=== PATIENT | female | born 1975 | race Caucasian/White ===

== ENCOUNTER 2017-03-01 15:36 | Observation (INO) ==
[2017-03-01] MEDS ORDERED: Ondansetron 4 MG/2 ML VIAL IVP ONE (16:01)
[2017-03-01] MEDS ORDERED: 0.9 % Sodium Chloride 1,000 ML IVC ONE (16:01)
--- NOTE | 2017-03-01 16:07 | Emergency Department Note ---
Disposition Clinical Impression: RUQ abdominal pain, Intractable abdominal pain, Liver mass Cholelithiasis Qualifiers: Cholelithiasis location: gallbladder Cholecystitis presence: without cholecystitis Biliary obstruction: with biliary obstruction Qualified Code(s): K80.21 - Calculus of gallbladder without cholecystitis with obstruction Disposition: Admitted As Inpatient Condition: Fair Time of Disposition: 19:19 Abdominal Pain HPI - General Chief Complaint: ED Abdominal Pain Stated Complaint: Abdominal pain Time Seen by Provider: 03/01/17 15:50 Source: patient Mode of arrival: ambulatory Limitations: no limitations Nursing Notes Reviewed: Yes Vital Signs Reviewed: Yes - History of Present Illness HPI Narrative: 41-year-old female presents with 6 days of epigastric pain, she states that her pain is currently 2 out of 10, is bad as an 8 out of 10, epigastric with some burning radiation across her lower rib cage, into her right upper quadrant, has some pain going into her bilateral back. she was seen at the urgent care yesterday where they told her she had gas and prescribed an [id number] Gas -X, for her pain. Patient describes the pain as crampy achy, has no history of gallbladder disease, has a history of abdominal surgeries, has had 4 previous kids, with intermittent irregular LMP is, thinks that she starting menopause. Otherwise no ST exposure, no dysuria hematuria, incidentally they found a renal stone but no ureterolithiasis on a plain film x-ray yesterday at the urgent care. Patient denies fever chills, does endorse some emesis nonbilious food contents over the last couple days. Associated with nausea denies any chest pain or shortness breath Pt Subjective Complaint: abdominal pain Location: RUQ, epigastric Pain Severity: moderate Pain Scale: 6 Quality: aching - Related Data Allergies Allergy/AdvReac Type Severity Reaction Status Date / Time ciprofloxacin [From Cipro] Allergy See Verified 03/01/17 15:42 Comments All systems ED: reviewed and negative except as stated. Constitutional: Denies: fever, chills, weakness Cardiovascular: Denies: chest pain, palpitations Respiratory: Denies: cough, dyspnea Gastrointestinal: Reports: as per HPI, abdominal pain, nausea, vomiting Genitourinary: Denies: urgency, dysuria Abdominal Pain PMH - Past Medical History Medical history: Reports: no medical history Female Surgical History: Reports: no surgical history - Social History Smoking status: Never smoker Alcohol use: Reports: none Drug use: Reports: none Physical Exam Constitutional: alert and oriented, in NAD, vital signs wnl appears moderately anxious HEENT: NCAT, sclera anicteric Neck: normal inspection, neck is supple, trachea midline Resp: normal chest inspection, CTA bilaterally, no resp distress CV: RRR, no m/g/r GI: + Rockwell sign, soft abdomen with mild epigastric and right upper quadrant tenderness to palpation. Bowel sounds 4 quadrants, negative tenderness at McBurney's point Back: normal inspection, no tenderness to palpation Neuro: A&O3, no gross motor or sensory deficits bilaterally MSK: normal inspection, bilateral UE and LE with normal ROM Skin: No rashes, skin warm, dry, intact - General Limitations: no limitations General appearance: alert, in no apparent distress Course Course Narrative: 41-year-old female with right upper quadrant pain, positive Rockwell's, afebrile no evidence of jaundice, concern for cholelithiasis, I did do a right upper quadrant ultrasound at bedside that showed gallbladder such sludge and cholelithiasis without gallbladder wall measuring 3.7mm, we will get a CT scan of abdomen and basic lab work with LFTs, IV fluids and Dilaudid. - Reevaluation(s) Reevaluation #1: After around of Toradol and Dilaudid, patient still with refractory right upper quadrant pain, plan to admit to medicine service, after talking with the general surgeon, we will start an IV antibiotics, admit to medicine service ultrasound in the morning, Dr. Crump accepting patient stable condition at the time of admission Time: 19:18 - Consultations Consultation #1: Spoke with Dr. Isabel about the 2 cm stone, equivocal findings, positive Rockwell's but otherwise no acute cholecystitis , ultrasoud deferred till AM per surgery, normal LFTs, he recommends admission to medicine started on IV Zosyn, and he will see in consultation the morning. Time: 19:17 Vital Signs Temperature 98.1 F 03/01/17 15:39 Pulse Rate 90 03/01/17 15:39 Respiratory Rate 20 03/01/17 15:39 Blood Pressure 151/89 03/01/17 15:39 O2 Sat by Pulse Oximetry 98 03/01/17 15:39 Temperature 98.8 F 03/01/17 20:17 Pulse Rate 78 03/01/17 21:43 Respiratory Rate 16 03/01/17 21:43 Blood Pressure 136/83 03/01/17 21:43 O2 Sat by Pulse Oximetry 96 03/01/17 21:43 Oxygen Delivery Oxygen Delivery Room Air Abdominal Pain - MDM Narrative Medical decision making narrative: 41-year-old female with right upper quadrant pain, cholelithiasis without cholecystitis on CT scan basic lab work unremarkable, given intractable pain consulted with general surgeon, admitted to medicine service in stable condition start an IV antibiotics ultrasound in the morning, nothing by mouth after midnight general surgery consult placed in the ED. - Differential Diagnosis Differential Diagnosis: Likely: acute appendicitis, constipation, colonic obstruction, diverticulitis, diverticulosis, gastroenteritis - Medical Records Medical records reviewed: Yes I reviewed the patient's medical records. - Lab Data Lab results reviewed: Yes I reviewed the patient's lab results. Result diagrams: 03/01/17 16:09 03/01/17 16:09 Lab Results 03/01/17 03/01/17 03/01/17 Range/Units 16:09 16:09 16:09 WBC 11.8 H (4.3-11.1) K/mcL RBC 4.31 (3.82-4.97) M/mcL Hgb 12.9 (11.5-15.4) g/dL Hct 37.9 (35.3-44.9) % MCV 87.9 (83.0-100.0) fL MCH 29.9 (28.0-33.3) pg MCHC 34.0 (31.6-35.5) g/dL RDW 12.6 (11.5-14.5) % Plt Count 362 (140-400) K/mcL MPV 8.4 L (9.4-12.4) fL Immature Gran % 0.4 (0-4) % Seg Neutrophils % 71.2 % Lymphocytes % 17.2 % Monocytes % 10.3 % Eosinophils % 0.6 % Basophils % 0.3 % Neutrophils # 8.4 (1.6-8.9) K/mcL Lymphocytes # 2.0 (0.6-4.6) K/mcL Monocytes # 1.2 (0.0-1.3) K/mcL Eosinophils # 0.1 (0.0-0.6) K/mcL Basophils # 0.0 (0.0-0.2) K/mcL Sodium 137 (136-145) mEq/L Potassium 3.7 (3.5-4.5) mEq/L Chloride 102 (98-109) mEq/L Carbon Dioxide 27 (19-29) mEq/L BUN 15 (7-20) mg/dL Creatinine 0.86 (0.57-1.11) mg/dL Est GFR ( Amer) > 60 (> 60) Est GFR (Non-Af Amer) > 60 (> 60) BUN/Creatinine Ratio 17 (6-26) Glucose 108 H (70-99) mg/dL Calculated Osmolality 285 (280-300) Calcium 9.7 (8.6-10.8) mg/dL Total Bilirubin 0.4 (0.2-1.2) mg/dL Direct Bilirubin 0.2 (0.0-0.5) mg/dL Indirect Bilirubin 0.2 (0.0-1.2) mg/dL AST 11 (5-34) Units/L ALT 21 (0-55) Units/L Alkaline Phosphatase 93 (38-126) Units/L Troponin I 0.01 (0-0.03) ng/mL Serum Total Protein 7.7 (6.0-8.3) g/dL Albumin 3.8 (3.5-5.0) g/dL Globulin 3.9 H (2.4-3.5) g/dL Albumin/Globulin Ratio 1.0 L (1.1-2.2) Amylase 37 (25-125) Units/L Lipase 38 (8-78) Units/L Urine Color (Yellow) Urine Clarity (Clear) Urine pH (5.0-8.0) pH Units Ur Specific [place] (1.010-1.025) Urine Protein (Neg-Trace) mg/dL Urine Glucose (UA) (Normal) mg/dL Urine Ketones (Negative) mg/dL Urine Blood (Negative) Urine Nitrite (Negative) Urine Bilirubin (Negative) Urine Urobilinogen (Normal) mg/dL Ur Leukocyte Esterase (Negative) Urine Microscopic RBC (0-3) per hpf Urine Microscopic WBC (0-3) per hpf Ur Squamous Epith Cells (None-Few) per lpf Urine Bacteria (None-Few) per hpf Hyaline Casts (None-Few) per lpf Ur Culture Indicated? (NO) Urine Test (Negative) 03/01/17 03/01/17 Range/Units 16:29 16:29 WBC (4.3-11.1) K/mcL RBC (3.82-4.97) M/mcL Hgb (11.5-15.4) g/dL Hct (35.3-44.9) % MCV (83.0-100.0) fL MCH (28.0-33.3) pg MCHC (31.6-35.5) g/dL RDW (11.5-14.5) % Plt Count (140-400) K/mcL MPV (9.4-12.4) fL Immature Gran % (0-4) % Seg Neutrophils % % Lymphocytes % % Monocytes % % Eosinophils % % Basophils % % Neutrophils # (1.6-8.9) K/mcL Lymphocytes # (0.6-4.6) K/mcL Monocytes # (0.0-1.3) K/mcL Eosinophils # (0.0-0.6) K/mcL Basophils # (0.0-0.2) K/mcL Sodium (136-145) mEq/L Potassium (3.5-4.5) mEq/L Chloride (98-109) mEq/L Carbon Dioxide (19-29) mEq/L BUN (7-20) mg/dL Creatinine (0.57-1.11) mg/dL Est GFR ( Amer) (> 60) Est GFR (Non-Af Amer) (> 60) BUN/Creatinine Ratio (6-26) Glucose (70-99) mg/dL Calculated Osmolality (280-300) Calcium (8.6-10.8) mg/dL Total Bilirubin (0.2-1.2) mg/dL Direct Bilirubin (0.0-0.5) mg/dL Indirect Bilirubin (0.0-1.2) mg/dL AST (5-34) Units/L ALT (0-55) Units/L Alkaline Phosphatase (38-126) Units/L Troponin I (0-0.03) ng/mL Serum Total Protein (6.0-8.3) g/dL Albumin (3.5-5.0) g/dL Globulin (2.4-3.5) g/dL Albumin/Globulin Ratio (1.1-2.2) Amylase (25-125) Units/L Lipase (8-78) Units/L Urine Color Yellow (Yellow) Urine Clarity Cloudy A (Clear) Urine pH 5.5 (5.0-8.0) pH Units Ur Specific [place] > 1.030 H (1.010-1.025) Urine Protein 30 H (Neg-Trace) mg/dL Urine Glucose (UA) Normal (Normal) mg/dL Urine Ketones Trace H (Negative) mg/dL Urine Blood Large H (Negative) Urine Nitrite Negative (Negative) Urine Bilirubin Negative (Negative) Urine Urobilinogen Normal (Normal) mg/dL Ur Leukocyte Esterase Negative (Negative) Urine Microscopic RBC 5-15 H (0-3) per hpf Urine Microscopic WBC 3-5 H (0-3) per hpf Ur Squamous Epith Cells Many H (None-Few) per lpf Urine Bacteria Few (None-Few) per hpf Hyaline Casts None Seen (None-Few) per lpf Ur Culture Indicated? NO (NO) Urine Test Negative (Negative) - Radiology Data Radiology results reviewed: Yes I reviewed the patient's radiology results. Chest X-Ray 03/01/17 16:02 IMPRESSION: No acute abnormality. D/ / Benji Markham MD / Benji Markham MD Interpreting Provider: Benji Markham MD Abdomen/Pelvis CT 03/01/17 17:08 IMPRESSION: 1. Cholelithiasis and probable gallbladder sludge, weight possible right upper quadrant fat stranding, raising the possibility of acute cholecystitis. 2. Heterogeneous hypodense lesion within the superior aspect of the left hepatic lobe. This is likely paper sales representative of focal fatty infiltration. However, given the cystic appearance in some of the regions, hepatic abscess would also be considered. Focal biliary ductal cystic dilation also possible. Neoplasm is not entirely excluded. In any event, MRI of that is recommended for better evaluation. Findings discussed with Dr. Hurtado at 3:20 pm on 03/01/2017 D/ / Gamal Monroe MD / Gamal Monroe MD Interpreting Provider: Gamal Monroe MD - EKG Data EKG attestation: Yes I reviewed and interpreted this EKG. EKG shows normal: sinus rhythm (76 bpm [place] 163 QRS 110 QTC 399 T wave inversion in lead 3, T-wave in lead [address] segment elevations or depressions, no previous EKG) T wave inversions noted in: III Interpretation: no acute changes - Core Measures AMI Core Measures Followed: No Measure Exclusions: not indicated Attestation Statement - Attestation Attestation: I, Smooth Perales, examined this patient and my medical decision-making was reviewed with the NUTRITION AND DIETETICS INSTRUCTOR/PA/Advanced Practice Nurse/Resident Physician. I agree with the documented findings, disposition and treatment plan as described except to the extent set forth below. 41-year-old female presents with concerns of right upper quadrant epigastric abdominal pain. Patient states her symptoms have been intermittent over the past 6 days. A sharp aching in her epigastrium and right upper quadrant, she states that this is sometimes worse after meals but is unable to correlate directly with by mouth intake. She was evaluated yesterday in an urgent care and was told that it was secondary to "excess gas" she states she had a bowel movement earlier today which was somewhat harder than her normal bowel movement however she does not feel constipated. Denies hematochezia, melena. Bedside ultrasound revealed a very large gallbladder but did not show significant amount of pericholecystic fluid or thickened gallbladder wall. CT of the abdomen showed stranding in the right upper quadrant and a large stone in the gallbladder neck. Laboratory testing did not reveal elevation of her LFTs. Patient required multiple doses of IV pain medication to control her pain. Resident spoke with the surgeon, Dr. Isabel, who recommended admission to the hospital for further care and evaluation and initial treatment with Zosyn. He will evaluate the patient in the a.m. for possible cholecystectomy. Patient is comfortable with this plan.
[2017-03-01 16:20] LABS: Basophils % 0.3 %; Eosinophils # 0.1 K/mcL (0.0-0.6); Eosinophils % 0.6 %; Hematocrit 37.9 % (35.3-44.9); Hemoglobin 12.9 g/dL (11.5-15.4); Immature Granulocytes % 0.4 % (0-4); Lymphocytes % 17.2 %; Mean Corpuscular Hemoglobin 29.9 pg (28.0-33.3); Mean Corpuscular Volume 87.9 fL (83.0-100.0); Mean Platelet Volume 8.4 fL (9.4-12.4); Monocytes # 1.2 K/mcL (0.0-1.3); Monocytes % 10.3 %; Neutrophils # 8.4 K/mcL (1.6-8.9); Platelet Count 362 K/mcL (140-400); Red Blood Count 4.31 M/mcL (3.82-4.97); Red Cell Distribution Width 12.6 % (11.5-14.5); Segmented Neutrophils % 71.2 %
[2017-03-01 16:34] LABS: Alanine Aminotransferase 21 Units/L (0-55); Albumin 3.8 g/dL (3.5-5.0); Alkaline Phosphatase 93 Units/L (38-126); Amylase 37 Units/L (25-125); Aspartate Amino Transferase 11 Units/L (5-34); BUN/Creatinine Ratio 17 (6-26); Bilirubin,Direct 0.2 mg/dL (0.0-0.5); Bilirubin,Indirect 0.2 mg/dL (0.0-1.2); Bilirubin,Total 0.4 mg/dL (0.2-1.2); Blood Urea Nitrogen 15 mg/dL (7-20); Calcium 9.7 mg/dL (8.6-10.8); Carbon Dioxide 27 mEq/L (19-29); Chloride 102 mEq/L (98-109); Globulin 3.9 g/dL (2.4-3.5); Glucose 108 mg/dL (70-99); Osmolality,Calculated 285 (280-300); Potassium 3.7 mEq/L (3.5-4.5); Sodium 137 mEq/L (136-145); Total Protein 7.7 g/dL (6.0-8.3); eGFR For African Americans > 60 (> 60); eGFR For Non-African Americans > 60 (> 60)
[2017-03-01] MEDS ORDERED: Ketorolac 15 MG/ML VIAL IVP ONE (16:41)
[2017-03-01 16:47] LABS: Bilirubin,Urine Negative (Negative); Blood,Urine Large (Negative); Clarity,Urine Cloudy (Clear); Color,Urine Yellow (Yellow); Glucose,Urine (UA) Normal (Normal); Ketones,Urine Trace mg/dL (Negative); Leukocyte Esterase,Urine Negative (Negative); Nitrite,Urine Negative (Negative); PH,Urine 5.5 pH Units (5.0-8.0); Protein,Urine 30 mg/dL (Neg-Trace); Specific Gravity,Urine > 1.030 (1.010-1.025); Urobilinogen,Urine Normal (Normal)
[2017-03-01 16:51] LABS: Bacteria,Urine Few per hpf (None-Few); Hyaline Casts,Urine None Seen per lpf (None-Few); Squamous Epithelial Cell,Urine Many per lpf (None-Few)
[2017-03-01 17:08] LABS: Lipase 38 Units/L (8-78)
[2017-03-01] MEDS ORDERED: *HR* HYDROmorphone (PF) 1 MG/ML SYRINGE IVP ONE ×3 (17:10→22:26)
[2017-03-01] MEDS ORDERED: Piperacillin/Tazobactam 3.375 GM in D5% in Water (Mini-Bag+) 100 ML IVPB ONE (19:20)
[2017-03-01] MEDS ORDERED: Naloxone 0.4 MG/ML INJ IVP PRN (19:54)
[2017-03-01] MEDS ORDERED: Acetaminophen 325 MG TABLET PO PRN (19:54)
--- NOTE | 2017-03-01 20:02 | Internal Med History&Physical ---
<Josias Peter - Last Filed: 03/01/17 20:49> Date of Encounter: 03/01/17 Time of Encounter: 19:58 Assessment and Plan (1) Acute cholecystitis Current visit: Yes Status: Acute 41-year-old female, admitted with right upper quadrant pain for roughly [address] of the abdomen demonstrates a grossly enlarged gallbladder with a 2 cm gallstone. - Gen. surgery is consulted Plan: - Patient receiving IV Zosyn in the emergency department, patient will be continued on Unasyn in the inpatient setting - Continue nothing by mouth status overnight with oral swabs and ice chips - Pain control with morphine and Dilaudid for severe pain - Normal saline at 100 mL per hour (2) Fecalith of appendix Current visit: Yes Status: Acute Review of the CT of the abdomen and pelvis demonstrates a fecalith at the junction of the appendix in the cecum. The patient is asymptomatic. (3) Liver mass Current visit: Yes Status: Acute A heterogeneous mainly hypodense lesion was observed in the abdomen and pelvis CT noted at the superior aspect of the medial segment of the left hepatic lobe measuring up to 7 x 5 cm on axial image. There is a cystic-appearing region noted within the lesion measuring up to 1.7 cm. Surrounding the lesion are margins of hyperdensity noted within the hepatic parenchyma. In the background there is diffuse fatty liver infiltration. - This may be a hemangioma, appears to be chronic. - Patient will need to follow-up in the outpatient setting. (4) Grand mal seizure disorder Current visit: Yes Status: Acute Patient has a history of absent seizures as a child and grand mal seizures as noted dull. Frequency roughly once a year with her last episode 2 months ago. She denies taking any antiseizure medications at home. Does not see a neurologist. - Says she has short-term memory loss with Ativan. - With history of seizures, patient about to undergo surgical procedure, will need to monitor for seizures. Plan: - Ativan when necessary for seizure activity. Internal Medicine - H&P: HPI Chief complaint: Right upper quadrant pain Admitted From: Emergency Dept Plans for Post Hospital Care: Home History of present illness: Ms. Humphries is a 41 year old female with a past medical history of seizure disorder presented to [facility] emergency department with right upper quadrant pain. She said that she started experiencing right upper quadrant pain that extended to her epigastric region and nerve pain in her mid upper back roughly 1 week ago. The pain waxed and waned in intensity but never fully resolved. She also had a feeling of a Knot and pulsating in her right upper quadrant. Over the past week she has had a lack of appetite, without last meal this morning eating oatmeal. She did not focus on any foods that may have exacerbated her symptoms but did notice that she was less hungry. She denies any right lower quadrant pain pain with walking or positional pain. She denies any other significant symptoms, denies any fevers, chills, sweating, blurry vision, lightheadedness, dizziness, chest pain, palpitations or any radiating pain to her arm or her face. She is unsure as if she had pain like this in the past but did notice the pain in the last week. She denies any previous surgeries, diabetes but says that her glucoses have been borderline prediabetic. With regards to her history of seizure disorder she says she last had a seizure 2 months ago and usually has a seizure once a year. She had absent seizures as a child but does have occasional seizures as mentioned above once a year under stressful situations. She says that the were grand mal seizures in the last time she had a grand mal seizure they gave her Ativan which gave her short-term memory loss. She denies any seizure activity recently. She denies taking any seizure medications or seeing a neurologist. She is not on any other medications. Past Med Surg Social Fam HX - Past Medical History Medical history: seizures - Past Surgical History Surgical History: no surgical history - Social History Smoking Status: Never smoker Alcohol use: none Drug use: none - Family History Mother Race: Hx Family Cancer: Yes (Lung cancer) Father Hx Family Endocrine Disorder: Yes (Diabetes) Internal Medicine - H&P: Meds Allergies ciprofloxacin [From Cipro] Allergy (Verified 03/01/17 15:42) See Comments All Systems PM: A 10-system review of systems was performed and is negative for pertinent findings except as documented above in the HPI. - Constitutional Constitutional: anorexia, no chills, no excessive sweating, no fatigue, no fever (s), no night sweats, no weakness - EENT Eyes: as per HPI, no blurry vision, no change in vision, no loss of vision Ears: as per HPI Nose, mouth and throat: no dry mouth, no epistaxis, no facial pain, no mouth pain, no sore throat - Cardiovascular Cardiovascular ROS IM: as per HPI, no chest pain, no dyspnea, no dyspnea on exertion, no syncope - Respiratory Respiratory: no cough, no dyspnea, no chest congestion - Gastrointestinal Gastrointestinal: abdominal pain, nausea, no change in bowel habits, no change in stool character, no constipation, no diarrhea, no heartburn, no hematemesis, no hematochezia, no loose stools - Genitourinary Genitourinary: as per HPI (Patient has 2-3 periods per year which she associates with menopause), no dysuria, no flank pain - Musculoskeletal Musculoskeletal ROS IM: back pain, no neck pain - Integumentary Integumentary IM: no erythema, no new lesions - Neurological Neurological ROS: no abnormal gait, no confusion, no dizziness, no headache(s), no loss of vision - Endocrine Endocrine IM: no excessive sweating, no fatigue, no flushing, no polydipsia, no polyphagia, no polyuria - Constitutional Vitals: Temp Pulse Resp BP Pulse Ox 98.1 F 81 18 142/58 98 03/01/17 15:39 03/01/17 19:30 03/01/17 19:47 03/01/17 19:47 03/01/17 19:30 Exam: General: Patient alert, awake, oriented 3, interactive, in no acute distress HEENT: Normocephalic, atraumatic, pupils equal reactive to light, nasal cavity patent and open septum median position, oral mucosa moist, uvula midline, neck supple trachea midline no palpable lymphadenopathy, no thyromegaly. Chest: Symmetric bilateral correlating with respiratory effort, effort nonlabored. Cardiac: Regular rate and rhythm, positive S1 and S2. no bruits appreciated bilateral carotids, Radial pulses 2+ bilateral, posterior tibial and dorsal pedal pulses 2+ bilateral. Respiratory: Clear to auscultation all lung durant Abdomen: Soft, positive Rockwell's sign, right upper quadrant tenderness, obese, positive bowel sounds, no erythema or edema or surgical scars Extremities: Symmetric bilateral, bilateral lower extremities without erythema or edema patient moving all 4 extremities spontaneously. Neurologic: No focal deficits appreciated on examination. Face symmetric, muscle strength symmetric bilateral upper and lower extremities. Internal Med - H&P Results - Labs CBC & Chem 7: 03/01/17 16:09 03/01/17 16:09 <Juan C Boyer - Last Filed: 03/02/17 06:01> Date of Encounter: 03/02/17 Internal Medicine - H&P: HPI History of present illness: Ms. Humphries is a 41 year old female All Systems PM: A 10-system review of systems was performed and is negative for pertinent findings except as documented above in the HPI. - Constitutional Vitals: Temp Pulse Resp BP Pulse Ox 98.2 F 89 20 142/85 100 03/02/17 03:51 03/02/17 03:51 03/02/17 03:51 03/02/17 03:51 03/02/17 03:51 Internal Med - H&P Results - Labs CBC & Chem 7: 03/02/17 05:21 03/02/17 05:21 Labs: Short CBC 03/02/17 Range/Units 05:21 WBC 11.3 H (4.3-11.1) K/mcL Hgb 13.4 (11.5-15.4) g/dL Hct 40.1 (35.3-44.9) % Plt Count 377 (140-400) K/mcL BMP 03/02/17 05:21 Sodium 137 Potassium 3.4 L Chloride 104 Carbon Dioxide 26 BUN 11 Creatinine 0.85 Glucose 127 H Calcium 9.4 Liver Function 03/02/17 Range/Units 05:21 Total Bilirubin 0.5 (0.2-1.2) mg/dL AST 50 H (5-34) Units/L ALT 68 H (0-55) Units/L Alkaline Phosphatase 106 (38-126) Units/L Albumin 3.6 (3.5-5.0) g/dL - Attending Attestation I examined this patient and my medical decision-making was reviewed with the Resident Physician. I agree with the documented findings, disposition and treatment plan as described
[2017-03-01] MEDS ORDERED: *HR* LORazepam 2 MG/ML VIAL IVP PRN (20:22)
[2017-03-01] MEDS: *HR* HYDROmorphone (PF) 1 MG/ML SYRINGE IVP PRN (20:38)
[2017-03-01] MEDS: 0.9 % Sodium Chloride 1,000 ML IVC SCH (20:38)
[2017-03-01] MEDS: *HR* Morphine 2 MG/ML SYRINGE IVP PRN (21:46)
[2017-03-01] MEDS: Ampicillin/Sulbactam 3,000 MG in 0.9 % Sodium Chloride Mini Bag 100 ML IVPB SCH (23:21)
[2017-03-02] MEDS ORDERED: *HR* HYDROcodone/Acet 7.5/325 mg TABLET PO PRN ×2 (00:11→11:43)
[2017-03-02] MEDS: *HR* HYDROmorphone (PF) 1 MG/ML SYRINGE IVP PRN ×4 (00:41→11:19)
[2017-03-02] MEDS: Ondansetron ODT 4 MG TAB.RAPDIS SL PRN ×2 (02:45→06:26)
[2017-03-02] MEDS: *HR* Morphine 2 MG/ML SYRINGE IVP PRN (02:53)
[2017-03-02] MEDS ORDERED: *HR* HYDROmorphone (PF) 1 MG/ML SYRINGE IVP PRN ×3 (04:03→16:01)
[2017-03-02] MEDS: Ampicillin/Sulbactam 3,000 MG in 0.9 % Sodium Chloride Mini Bag 100 ML IVPB SCH ×3 (05:22→23:29)
[2017-03-02 05:34] LABS: Hematocrit 40.1 % (35.3-44.9); Hemoglobin 13.4 g/dL (11.5-15.4); Mean Corpuscular HGB Conc 33.4 g/dL (31.6-35.5); Mean Corpuscular Volume 89.7 fL (83.0-100.0); Mean Platelet Volume 8.5 fL (9.4-12.4); Platelet Count 377 K/mcL (140-400); Red Blood Count 4.47 M/mcL (3.82-4.97); Red Cell Distribution Width 12.6 % (11.5-14.5)
[2017-03-02 05:46] LABS: Alanine Aminotransferase 68 Units/L (0-55); Albumin 3.6 g/dL (3.5-5.0); Albumin/Globulin Ratio 0.8 (1.1-2.2); Alkaline Phosphatase 106 Units/L (38-126); Aspartate Amino Transferase 50 Units/L (5-34); BUN/Creatinine Ratio 13 (6-26); Bilirubin,Total 0.5 mg/dL (0.2-1.2); Blood Urea Nitrogen 11 mg/dL (7-20); Calcium 9.4 mg/dL (8.6-10.8); Carbon Dioxide 26 mEq/L (19-29); Chloride 104 mEq/L (98-109); Globulin 4.4 g/dL (2.4-3.5); Glucose 127 mg/dL (70-99); Osmolality,Calculated 285 (280-300); Potassium 3.4 mEq/L (3.5-4.5); Sodium 137 mEq/L (136-145); eGFR For African Americans > 60 (> 60); eGFR For Non-African Americans > 60 (> 60)
[2017-03-02] MEDS: 0.9 % Sodium Chloride 1,000 ML IVC SCH (08:03)
--- NOTE | 2017-03-02 08:09 | General Surgery Consult Note ---
Date of Encounter: 03/02/17 Time of Encounter: 08:06 Assessment and Plan (1) Liver mass Current Visit: Yes Status: Acute Noted abnormal mass in the right dome of the liver. Will order a MRI of the abdomen with and without contrast better visualization of this mass effect. (2) Acute cholecystitis Current Visit: Yes Status: Acute Review the results and findings with the patient and family. She does have signs of acute cholecystitis and may have hydrops fluid within the gallbladder due to the stone at the cystic duct/neck. I think will be appropriate to proceed with a laparoscopic cholecystectomy. Risks and benefits have been discussed with the patient and family and they agree to the above plan. History of Present Illness Consult date: 03/02/17 Reason for consult: abdominal pain Requesting physician: Juan C Boyer History of present illness: The patient is a 41-year-old female with a past medical history significant for obesity states that over the past week she has had worsening continued right upper quadrant abdominal pain. She admits to nausea and vomiting and states the pain is severe in nature. She states that she has not had this type of pain before in the past and the pain is a constant ache that also radiates the left upper quadrant and across the abdomen in a bandlike fashion. She denies any diarrhea or constipation and because of her persistent and worsening abdominal pain she presented to the emergency room for further evaluation. Past Med Surg Social Fam HX - Past Medical History Medical history: no medical history Psychiatric history: no psych history - Past Surgical History Surgical History: no surgical history - Social History Smoking Status: Never smoker Smokeless Tobacco Status: No Alcohol use: none Drug use: none - Family History Mother Race: Hx Family Cancer: Yes (Lung cancer) Hx Family GI Disorders: Yes (appendix removed) Father Hx Family GI Disorders: Yes (gallbladder removed) Hx Family Endocrine Disorder: Yes (Diabetes) Medications and Allergies Allergies ciprofloxacin [From Cipro] Allergy (Verified 03/01/17 15:42) See Comments Review of Systems All systems PM: reviewed and no additional remarkable complaints except as stated All systems PM: A 10-system review of systems was performed and is negative for pertinent findings except as documented above in the HPI. General Surgery Exam Initial Vital Signs Temp Pulse Resp BP Pulse Ox 98.1 F 90 20 151/89 98 03/01/17 15:39 03/01/17 15:39 03/01/17 15:39 03/01/17 15:39 03/01/17 15:39 - General physical appearance severe distress - Eyes PERRL, normal ocular movement - Neck no masses, trachea midline, no lymphadectomy - Respiratory normal expansion, normal respiratory effort, clear to auscultation - Cardiovascular Cardiovascular exam: Present: RRR, no murmurs/rubs/gallops - Abdomen Abdomen general surgery: Present: bowel sounds present, soft (Obese), tender ( Pain to palpation in the RUQ. No masses.) - Integumentary Integumentary general surgery: Present: warm and dry - Neurologic Present: CN 2-12 grossly intact - Musculoskeletal Present: other (No clubbing, cyanosis, or edema.) - Psychiatric Psychiatric general surgery: Present: A&Ox3 Exam Initial Vital Signs Temp Pulse Resp BP Pulse Ox 98.1 F 90 20 151/89 98 03/01/17 15:39 03/01/17 15:39 03/01/17 15:39 03/01/17 15:39 03/01/17 15:39 Results - Labs 03/02/17 05:21 03/02/17 05:21 Abnormal lab results WBC 11.3 K/mcL (4.3-11.1) H 03/02/17 05:21 MPV 8.5 fL (9.4-12.4) L 03/02/17 05:21 Potassium 3.4 mEq/L (3.5-4.5) L 03/02/17 05:21 Glucose 127 mg/dL (70-99) H 03/02/17 05:21 POC Glucose 115 (58-89) H 03/02/17 05:25 AST 50 Units/L (5-34) H 03/02/17 05:21 ALT 68 Units/L (0-55) H 03/02/17 05:21 Globulin 4.4 g/dL (2.4-3.5) H 03/02/17 05:21 Albumin/Globulin Ratio 0.8 (1.1-2.2) L 03/02/17 05:21 Urine Clarity Cloudy (Clear) A 03/01/17 16:29 Ur Specific [place] > 1.030 (1.010-1.025) H 03/01/17 16:29 Urine Protein 30 mg/dL (Neg-Trace) H 03/01/17 16:29 Urine Ketones Trace mg/dL (Negative) H 03/01/17 16:29 Urine Blood Large (Negative) H 03/01/17 16:29 Urine Microscopic RBC 5-15 per hpf (0-3) H 03/01/17 16:29 Urine Microscopic WBC 3-5 per hpf (0-3) H 03/01/17 16:29 Ur Squamous Epith Cells Many per lpf (None-Few) H 03/01/17 16:29 Diabetes panel 03/02/17 Range/Units 05:21 Sodium 137 (136-145) mEq/L Potassium 3.4 L (3.5-4.5) mEq/L Chloride 104 (98-109) mEq/L Carbon Dioxide 26 (19-29) mEq/L BUN 11 (7-20) mg/dL Creatinine 0.85 (0.57-1.11) mg/dL Glucose 127 H (70-99) mg/dL Calcium 9.4 (8.6-10.8) mg/dL AST 50 H (5-34) Units/L ALT 68 H (0-55) Units/L Alkaline Phosphatase 106 (38-126) Units/L Albumin 3.6 (3.5-5.0) g/dL Calcium panel 03/02/17 Range/Units 05:21 Calcium 9.4 (8.6-10.8) mg/dL Albumin 3.6 (3.5-5.0) g/dL Pituitary panel 03/02/17 Range/Units 05:21 Sodium 137 (136-145) mEq/L Potassium 3.4 L (3.5-4.5) mEq/L Chloride 104 (98-109) mEq/L Carbon Dioxide 26 (19-29) mEq/L BUN 11 (7-20) mg/dL Creatinine 0.85 (0.57-1.11) mg/dL Glucose 127 H (70-99) mg/dL Calcium 9.4 (8.6-10.8) mg/dL Adrenal panel 03/02/17 Range/Units 05:21 Sodium 137 (136-145) mEq/L Potassium 3.4 L (3.5-4.5) mEq/L Chloride 104 (98-109) mEq/L Carbon Dioxide 26 (19-29) mEq/L BUN 11 (7-20) mg/dL Creatinine 0.85 (0.57-1.11) mg/dL Glucose 127 H (70-99) mg/dL Calcium 9.4 (8.6-10.8) mg/dL Total Bilirubin 0.5 (0.2-1.2) mg/dL AST 50 H (5-34) Units/L ALT 68 H (0-55) Units/L Alkaline Phosphatase 106 (38-126) Units/L Albumin 3.6 (3.5-5.0) g/dL All other labs normal. - Imaging CT scan - abdomen: report reviewed, image reviewed (Images and report reviewed by me. Evidence of a distended gallbladder with stone in the cystic duct/neck. Noted possible mass effect versus hemangioma in the dome of the right liver.) Consult Discharge Plan - Plan Referrals: NO,PCP [Primary Care Provider] -
--- NOTE | 2017-03-02 08:56 | Internal Med Progress Note ---
Date of Encounter: 03/02/17 Time of Encounter: 08:54 - Assessment and plan (1) Acute cholecystitis Current Visit: Yes Status: Acute Assessment and plan: Acute cholecystitis Continue Unasyn day 2, add Flagyl Keep nothing by mouth, surgery consulted to consider possible cholecystectomy Continue IV fluids, Dilaudid as needed (2) Hypokalemia Current Visit: Yes Status: Acute Assessment and plan: Potassium to the IV fluids and replete as needed (3) Cholelithiasis Current Visit: Yes Status: Acute Qualifiers: Cholelithiasis location: gallbladder Cholecystitis presence: without cholecystitis Biliary obstruction: with biliary obstruction Qualified Code(s ): K80.21 - Calculus of gallbladder without cholecystitis with obstruction (4) Liver mass Current Visit: Yes Status: Acute Assessment and plan: MRI ordered by Dr. Isabel (5) Grand mal seizure disorder Current Visit: Yes Status: Acute Assessment and plan: The patient does not take any medication (6) Fecalith of appendix Current Visit: Yes Status: Acute - Subjective Interval history: Complains of abdominal pain the right upper quadrant 8 out of 10 in intensity that comes and goes, stabbing-like. Complaining of chills, no chest pain or shortness of breath, no dysuria. No diarrhea - Constitutional Vitals: Temp Pulse Resp BP Pulse Ox 99.7 F H 92 15 138/83 97 03/02/17 06:57 03/02/17 06:57 03/02/17 06:57 03/02/17 06:57 03/02/17 07:56 General appearance: Present: A&O X 3 - Head Head exam: Present: atraumatic, normocephalic - Eye Eye exam: Present: PERRL, conjuntiva pink, sclera anicteric Pupils: Present: PERRL - Neck Neck exam general surgery: Present: supple, trachea midline. Absent: lymphadenopathy - Respiratory Respiratory exam: Present: CTAB. Absent: accessory muscle use, rales, rhonchi, wheezes - Cardiovascular Cardiovascular exam: Present: RRR, +S1, +S2. Absent: diastolic murmur, gallop, rubs, systolic murmur - GI/Abdominal GI/Abdominal exam: Present: distended, normal bowel sounds, soft, tenderness ( Right upper quadrant tenderness, Rockwell's sign is positive), no peritoneal signs - Extremities Exam Extremities exam: Present: warm, radial pulses palpable and symetrical. Absent : calf tenderness, cyanotic, pedal edema - Neurological Exam Neurological exam: Present: CN II-XII intact, oriented X3, no focal deficits. Absent: pronater drift, facial droop, speech deficit - Skin Skin exam: Present: dry, intact Internal Medicine: Result - Labs CBC & Chem 7: 03/02/17 05:21 03/02/17 05:21 Labs: Short CBC 03/02/17 Range/Units 05:21 WBC 11.3 H (4.3-11.1) K/mcL Hgb 13.4 (11.5-15.4) g/dL Hct 40.1 (35.3-44.9) % Plt Count 377 (140-400) K/mcL BMP 03/02/17 05:21 Sodium 137 Potassium 3.4 L Chloride 104 Carbon Dioxide 26 BUN 11 Creatinine 0.85 Glucose 127 H Calcium 9.4 Liver Function 03/02/17 Range/Units 05:21 Total Bilirubin 0.5 (0.2-1.2) mg/dL AST 50 H (5-34) Units/L ALT 68 H (0-55) Units/L Alkaline Phosphatase 106 (38-126) Units/L Albumin 3.6 (3.5-5.0) g/dL Consult Discharge Plan - Plan Referrals: NO,PCP [Primary Care Provider] -
[2017-03-02] MEDS ORDERED: Pantoprazole 40 MG VIAL IVP SCH (09:00)
--- NOTE | 2017-03-02 13:36 | Electrocardiograph Report ---
[place] [id number] Test Date: 2017-03-01 Pat Name: Grace Humphries Department: 102 Room: 3A Gender: F Pm Head Cook: [facility] : 1975 Requested By: Hugo Welch Order Number: [id number] Reading MD: Colby uFng MD Measurements Intervals [place] Rate: 76 P: 16 KS: 163 QRS: 25 QRSD: 110 T: 3 QT: 369 QTc: 399 Interpretive Statements SINUS RHYTHM Electronically Signed On 03-02-2017 13:34:20 EDT by Colby Fung MD
[2017-03-02] MEDS ORDERED: Lidocaine -MPF 4% 5 ML AMPUL ONE (14:45)
[2017-03-02] MEDS ORDERED: Ondansetron 4 MG/2 ML VIAL ONE (14:45)
[2017-03-02] MEDS ORDERED: *HR* Propofol 200 MG/20 ML VIAL IVP ONE (14:45)
[2017-03-02] MEDS ORDERED: *HR* Midazolam HCl 2 MG/2 ML VIAL ONE (14:45)
[2017-03-02] MEDS ORDERED: Lidocaine -MPF 2% 2 ML VIAL ONE (14:45)
[2017-03-02] MEDS ORDERED: *HR* Succinylcholine 200 MG/10 ML VIAL IVP ONE (14:45)
[2017-03-02] MEDS ORDERED: Dexamethasone 4 MG/ML VIAL ONE (14:45)
[2017-03-02] MEDS ORDERED: *HR* FentaNYL (PF) 100 MCG/2 ML VIAL ONE ×2 (14:45→16:47)
--- NOTE | 2017-03-02 15:08 | Anesthesia Evaluation PreOp ---
Date of Encounter: 03/02/17 Time of Encounter: 15:30 - Past History Planned Operation: lap cholecystectomy Cardiac History: Denies any Significant Hx Pulmonary History: Denies Any Significant HX VP PURCHASING History: Seizures (takes no medications; one seizure ~ every 3 years) Other Medical History: Other (BMI 39) Anesthesia History: No Prior Anesthetic Complications (never underwent anesthesia previously; no fhx of problems with anesthesia) Alcohol Use: none Drug use: none Medications and Allergies No Known Home Drugs 03/02/17 [History] Allergies ciprofloxacin [From Cipro] Allergy (Verified 03/01/17 15:42) See Comments - Meds/Allergy Pre-op Review Medications Reviewed: Yes Allergies Reviewed: Yes Beta Blockers on Current Med List: No Anesthesia Results - Labs 03/02/17 05:21 03/02/17 05:21 - Imaging EKG: report reviewed, image reviewed (SR) Anesthesia Exam Last Vital Signs Temp 99.3 F 03/02/17 10:47 Pulse 83 03/02/17 10:47 Resp 15 03/02/17 10:47 BP 145/85 03/02/17 10:47 Pulse Ox 96 03/02/17 10:47 - HEENT Pupil (Motor): Pupils equal, EOMI Mallampati: I Teeth: Normal Oral Opening: Greater than 3 - VP PURCHASING LOC: Oriented VP PURCHASING Motor: Normal RUE, Normal LUE, Normal RLE, Normal LLE, Normal Face - Cardiac Rhythm: Regular Murmur: None - Pulmonary Breath Sounds: bilateral Clear Respiratory Effort: Symmetrical Anesthesia Assess/Plan ASA Score: 2 Modified [place] Scale for Level of Consciousness: Cooperative, oriented, and tranquil Anesthetic Plan: General Monitoring Plan: Standard Monitors Recovery Plan: PACU
[2017-03-02] MEDS ORDERED: MetroNIDAZOLE 500 MG/100 ML 500 MG/100 ML BAG IVPB SCH (16:00)
[2017-03-02] MEDS ORDERED: Ondansetron 4 MG/2 ML VIAL IVP ONE (16:01)
[2017-03-02] MEDS ORDERED: *HR* Phenylephrine 10 MG/ML VIAL ONE (16:02)
[2017-03-02] MEDS ORDERED: Neostigmine Methylsulfate 3 MG/3 ML SYRINGE ONE (16:06)
[2017-03-02] MEDS ORDERED: *HR* HYDROmorphone 2 MG/ML SYRINGE ONE (16:47)
--- NOTE | 2017-03-02 16:50 | Operative Note ---
Date of procedure: 03/02/17 Pre-op diagnosis: Acute cholecystitis Post-op diagnosis: same Procedure: Laparscopic cholecystectomy Anesthesia: MESFIN Surgeon: Miguel Isabel Steeple Jack: Davida Villa Estimated blood loss (cc): 150 Specimen: gallbladder and contents Condition: stable Disposition: PACU Procedure in Detail: Date of surgery: 03/02/17 After properly identifying the patient, the patient was brought to the operating room and placed in the supine position. After proper IV sedation was achieved followed by general endotracheal intubation, the patient's abdomen was prepped and draped in a normal sterile fashion. A timeout was performed noting the patient's name and type of procedure to be performed. A supraumbilical incision with an 11 blade scalpel was made down to the level of the rectus fascia. The rectus fascia was then incised and the abdomen was entered. A 12 mm port was placed through the incision and the abdomen was insufflated with carbon dioxide. A laparoscopic camera was placed through the port which showed no injury to the intra-abdominal organs upon entry. A subxiphoid 12 mm port and a right subcostal margin 5 mm port were then placed under direct camera visualization. The patient was placed in a reverse Trendelenburg position and the gallbladder was examined and noted to be enlarged and distended. Due to the largest gallbladder the decision was made to needle decompress the gallbladder with a laparoscopic needle drainage device which yielded 200 mL of lightly greenish/ brownish exudate/bile. This allowed for grasping of the gallbladder retraction superiorly. The gallbladder was noted to be significantly acutely inflamed consistent with acute cholecystitis. The peritoneal covering overlying the cystic duct and cystic artery was bluntly dissected free with a [place] dissector. The cystic duct was isolated and there was a large gallstone noted at the neck of the gallbladder. The peritoneal covering overlying the cystic duct was dissected free with blunt dissection and the duct was clipped laparoscopic clips and incised with laparoscopic scissors. The cystic artery was likewise clipped with laparoscopic clips and incised with laparoscopic scissors. The gallbladder was carefully dissected off the gallbladder fossa with Bovie cauterization while Bovie cauterization was used to maintain hemostasis. Once the gallbladder was dissected free was removed from the abdomen via an Endobag. There is some noted bleeding on the dome of the right liver and the laceration was identified which was cauterized. The right upper quadrant was then copiously irrigated with normal saline solution and reinspection demonstrated maintenance of hemostasis along the gallbladder fossa and at the level of the laceration. All ports were then removed from the abdomen after the abdomen was desufflated. The rectus fascia for the supraumbilical incision was reapproximated with a [id number] 0 Vicryl suture. The subcutaneous tissue was reapproximated with interrupted 3-0 Vicryl sutures. The epidermal and dermal layers for the remaining incisions were reapproximated with 4-0 Monocryl sutures. Needle, sponge, and instrument counts were correct 2 and the incisions were covered with Steri-Strips and Band-Aids. The patient was aroused from IV sedation, extubated in the operating room without complication, and transported to the recovery room in stable condition
--- NOTE | 2017-03-02 17:35 | Anesthesia Evaluation Post Op ---
Date of Encounter: 03/02/17 Time of Encounter: 17:35 - Vital Signs Vital Signs: Last Vital Signs Temp 97.3 F L 03/02/17 17:01 Pulse 76 03/02/17 17:21 Resp 15 03/02/17 17:21 BP 118/80 03/02/17 17:21 Pulse Ox 95 03/02/17 17:21 - Lungs Lungs: Clear Ascult./Percussion - Airway Airway: Non-obstructed - Cardiovascular Regular Rate - Mental Status Mental Status: Alert & Oriented, Answers Appropriately - Pain Pain Scale: 3 - Nausea Vomiting Nausea Vomiting: Not Present - Hydration Hydration: Ice chips - Discharge PostOp Status: Transfer Patient to floor
[2017-03-02] MEDS ORDERED: Naloxone 0.4 MG/ML INJ IVP PRN (18:03)
[2017-03-02] MEDS ORDERED: Ondansetron ODT 4 MG TAB.RAPDIS SL PRN (18:03)
[2017-03-02] MEDS ORDERED: Acetaminophen 325 MG TABLET PO PRN (18:03)
[2017-03-02] MEDS ORDERED: *HR* LORazepam 2 MG/ML VIAL IVP PRN (18:03)
[2017-03-02] MEDS: *HR* HYDROcodone/Acet 7.5/325 mg TABLET PO PRN (20:25)
[2017-03-02] MEDS: MetroNIDAZOLE 500 MG/100 ML 500 MG/100 ML BAG IVPB SCH (23:30)
[2017-03-03] MEDS: *HR* HYDROmorphone (PF) 1 MG/ML SYRINGE IVP PRN ×2 (04:33→07:30)
[2017-03-03 04:44] LABS: Hemoglobin 12.4 g/dL (11.5-15.4); Mean Corpuscular HGB Conc 33.5 g/dL (31.6-35.5); Mean Corpuscular Hemoglobin 30.8 pg (28.0-33.3); Mean Corpuscular Volume 91.8 fL (83.0-100.0); Mean Platelet Volume 8.8 fL (9.4-12.4); Platelet Count 354 K/mcL (140-400); Red Blood Count 4.03 M/mcL (3.82-4.97); Red Cell Distribution Width 12.9 % (11.5-14.5)
[2017-03-03] MEDS: Ampicillin/Sulbactam 3,000 MG in 0.9 % Sodium Chloride Mini Bag 100 ML IVPB SCH ×2 (05:03→12:04)
[2017-03-03 05:06] LABS: Alanine Aminotransferase 100 Units/L (0-55); Albumin 3.2 g/dL (3.5-5.0); Albumin/Globulin Ratio 0.7 (1.1-2.2); Alkaline Phosphatase 91 Units/L (38-126); Aspartate Amino Transferase 76 Units/L (5-34); BUN/Creatinine Ratio 11 (6-26); Bilirubin,Total 0.5 mg/dL (0.2-1.2); Blood Urea Nitrogen 9 mg/dL (7-20); Calcium 9.1 mg/dL (8.6-10.8); Carbon Dioxide 25 mEq/L (19-29); Chloride 105 mEq/L (98-109); Globulin 4.6 g/dL (2.4-3.5); Glucose 110 mg/dL (70-99); Osmolality,Calculated 287 (280-300); Potassium 3.7 mEq/L (3.5-4.5); Sodium 139 mEq/L (136-145); Total Protein 7.8 g/dL (6.0-8.3); eGFR For African Americans > 60 (> 60); eGFR For Non-African Americans > 60 (> 60)
[2017-03-03] MEDS ORDERED: Pantoprazole 40 MG VIAL IVP SCH (09:00)
[2017-03-03] MEDS: MetroNIDAZOLE 500 MG/100 ML 500 MG/100 ML BAG IVPB SCH (09:10)
--- NOTE | 2017-03-03 09:10 | General Surgery Progress Note ---
Date of Encounter: 03/03/17 Time of Encounter: 09:08 - Assessment and Plan (1) Liver mass Current Visit: Yes Status: Acute I explained to the patient that the review of the MRI demonstrated that the liver lesions or masses were consistent with hemangiomas. No further intervention is necessary. (2) Acute cholecystitis Current Visit: Yes Status: Acute S/p Lap CCY. From a surgical perspective I think it would be appropriate to further advance her diet and some IV fluids. Okay to be discharged home and we will make sure she has a follow-up to see us in the office in 2 weeks. Will sign off. Thank you. Subjective Patient reports: other (Patient states that her pain has significantly improved. Noted left sided tenderness. No nausea.) Objective Vital Signs - Last 8 Hours Temp Pulse Resp BP Pulse Ox 03/03/17 07:24 99.0 F 89 18 128/84 96 Intake and Output 03/02/17 03/03/17 03/03/17 23:59 07:59 15:59 Intake Total 200 / 200 1300 / 1300 Output Total 150 / 150 0 / 0 Balance 50 / 50 1300 / 1300 Intake: IV Fluids 200 / 200 1300 / 1300 KCl 10 MEQ In 0.9 % 200 / 200 1000 / 1000 Sodium Chloride 1,000 ML @ 125 mls/hr IVC .Q8H3M AMADA Rx#:[id number] Unasyn 3,000 MG In 0.9 % 200 / 200 Sodium Chloride (Mini-Bag +) 100 ML @ 200 mls/hr IVPB Q6HR AMADA Rx#: [id number] Flagyl Premix 500 MG/100 100 / 100 ML 500 mg In 100 ml @ 100 mls/hr IVPB Q8HR AMADA Rx# :[id number] Oral 0 / 0 0 / 0 Output: Urine 0 / 0 0 / 0 Estimated Blood Loss 150 / 150 Other: Meal NPO Blood Glucose* 100 - General physical appearance well developed, well nourished, no distress - Abdomen Abdomen: Present: soft, tender (Noted incisional tenderness.) - Labs 03/03/17 04:24 03/03/17 04:24 Diabetes panel 03/03/17 Range/Units 04:24 Sodium 139 (136-145) mEq/L Potassium 3.7 (3.5-4.5) mEq/L Chloride 105 (98-109) mEq/L Carbon Dioxide 25 (19-29) mEq/L BUN 9 (7-20) mg/dL Creatinine 0.80 (0.57-1.11) mg/dL Glucose 110 H (70-99) mg/dL Calcium 9.1 (8.6-10.8) mg/dL AST 76 H (5-34) Units/L ALT 100 H (0-55) Units/L Alkaline Phosphatase 91 (38-126) Units/L Albumin 3.2 L (3.5-5.0) g/dL Calcium panel 03/03/17 Range/Units 04:24 Calcium 9.1 (8.6-10.8) mg/dL Albumin 3.2 L (3.5-5.0) g/dL Pituitary panel 03/03/17 Range/Units 04:24 Sodium 139 (136-145) mEq/L Potassium 3.7 (3.5-4.5) mEq/L Chloride 105 (98-109) mEq/L Carbon Dioxide 25 (19-29) mEq/L BUN 9 (7-20) mg/dL Creatinine 0.80 (0.57-1.11) mg/dL Glucose 110 H (70-99) mg/dL Calcium 9.1 (8.6-10.8) mg/dL Adrenal panel 03/03/17 Range/Units 04:24 Sodium 139 (136-145) mEq/L Potassium 3.7 (3.5-4.5) mEq/L Chloride 105 (98-109) mEq/L Carbon Dioxide 25 (19-29) mEq/L BUN 9 (7-20) mg/dL Creatinine 0.80 (0.57-1.11) mg/dL Glucose 110 H (70-99) mg/dL Calcium 9.1 (8.6-10.8) mg/dL Total Bilirubin 0.5 (0.2-1.2) mg/dL AST 76 H (5-34) Units/L ALT 100 H (0-55) Units/L Alkaline Phosphatase 91 (38-126) Units/L Albumin 3.2 L (3.5-5.0) g/dL - VTE Documentation of Mechanical Device: Intermittent pneumatic compression device Consult Discharge Plan - Plan Referrals: NO,PCP [Primary Care Provider] -
--- NOTE | 2017-03-03 10:09 | Discharge Summary ---
Date of Encounter: 03/03/17 Time of Encounter: 10:06 - Discharge Diagnosis (1) Acute cholecystitis Priority: Primary Status: Acute (2) Hypokalemia Priority: Secondary Status: Acute (3) Cholelithiasis Priority: Primary Status: Acute Qualifiers: Cholelithiasis location: gallbladder Cholecystitis presence: without cholecystitis Biliary obstruction: with biliary obstruction Qualified Code(s ): K80.21 - Calculus of gallbladder without cholecystitis with obstruction (4) Liver mass Priority: Secondary Status: Acute Comments: Liver hemangioma (5) Grand mal seizure disorder Priority: Secondary Status: Acute (6) Fecalith of appendix Priority: Secondary Status: Acute - Discharge Medications Prescriptions: HYDROcodone/Acet 7.5/325 mg [[place] 7.5-325 mg] 1 tab PO Q6HR PRN #25 tablet PRN Reason: Moderate Pain Amoxicillin/Clavulanate [Augmentin] 875 mg PO BIDWM #10 tablet metroNIDAZOLE [Flagyl] 500 mg PO TID #15 tablet Home Medications: Amoxicillin/Clavulanate [Augmentin] 875 mg PO BIDWM #10 tablet 03/03/17 [Rx] HYDROcodone/Acet 7.5/325 mg [[place] 7.5-325 mg] 1 tab PO Q6HR PRN #25 tablet 02/12 [Rx] metroNIDAZOLE [Flagyl] 500 mg PO TID #15 tablet 03/03/17 [Rx] Allergies/Adverse Reactions: Allergies ciprofloxacin [From Cipro] Allergy (Verified 03/01/17 15:42) See Comments Procedures/tests Complete & Pending: Procedures Performed prior 72 hours Category Date Time Status MR abdomen wo/w con [MR] Stat MRI 03/02/17 08:05 Completed Date of admission: 03/01/17 19:31 Primary care physician: PCP NO - Patient Status Disposition: Home, Self-Care Condition: Fair Overall status at discharge: patient is back to baseline - Discharge Instructions Follow Up With: NO,PCP [Primary Care Provider] - Additional Instructions: Follow-up with a primary care physician within the next 7 days, complete 5 more days of Augmentin and Flagyl orally. Do not take alcohol beverages with Flagyl. Follow-up with surgery within the next 2 weeks. Follow-up with neurologist. - Diet and Activity Activity: increase activity as tolerated Diet: low fat, low cholesterol Hospital course: Ms. Humphries is a 41 year old female with a past medical history of seizure disorder presented to [facility] emergency department with right upper quadrant pain. She said that she started experiencing right upper quadrant pain that extended to her epigastric region and nerve pain in her mid upper back roughly 1 week ago. The pain waxed and waned in intensity but never fully resolved. She also had a feeling of a Knot and pulsating in her right upper quadrant. Over the past week she has had a lack of appetite, without last meal this morning eating oatmeal. She did not focus on any foods that may have exacerbated her symptoms but did notice that she was less hungry. She denies any right lower quadrant pain pain with walking or positional pain. She denied any previous surgeries, diabetes but says that her glucoses have been borderline prediabetic. With regards to her history of seizure disorder she says she last had a seizure 2 months ago and usually has a seizure once a year. She had absent seizures as a child but does have occasional seizures as mentioned above once a year under stressful situations. She says that the were grand mal seizures in the last time she had a grand mal seizure they gave her Ativan which gave her short-term memory loss. She denies any seizure activity recently. She denies taking any seizure medications or seeing a neurologist. She was not on any other medications. CT scan of the abdomen demonstrated cholelithiasis and acute cholecystitis, there was a hypodense lesion noticed for which an MRI was recommended which showed a 5.5 cm x 5.4 cm left lobe liver mass compatible with a possible hemangioma with other 2 smaller ones. No surgical intervention for these benign neoplastic formations were recommended by surgery. The patient underwent a cholecystectomy on 03/02/2017 that was laparoscopic without any complications. The patient was given the option to stay another day but prefers to be discharged at this time. Cleared by Surgery - Time Spent with Patient Total time spent providing and/or coordinating discharge services: Greater than 30 minutes (40 min) - Constitutional Vitals: Temp Pulse Resp BP Pulse Ox 99.0 F 89 18 128/84 96 03/03/17 07:24 03/03/17 07:24 03/03/17 07:24 03/03/17 07:24 03/03/17 07:24 General appearance: Present: A&O X 3 - Head Head exam: Present: atraumatic, normocephalic - Eye Eye exam: Present: PERRL, conjuntiva pink, sclera anicteric Pupils: Present: PERRL - Neck Neck exam general surgery: Present: supple, trachea midline. Absent: lymphadenopathy - Respiratory Respiratory exam: Present: CTAB. Absent: accessory muscle use, rales, rhonchi, wheezes - Cardiovascular Cardiovascular exam: Present: RRR, +S1, +S2. Absent: diastolic murmur, gallop, rubs, systolic murmur - GI/Abdominal GI/Abdominal exam: Present: distended, normal bowel sounds, soft, no peritoneal signs. Absent: tenderness Additional comments: surgical port wounds without signs of infection or hematoma - Extremities Exam Extremities exam: Present: warm, radial pulses palpable and symetrical. Absent : calf tenderness, cyanotic, pedal edema - Neurological Exam Neurological exam: Present: CN II-XII intact, oriented X3, no focal deficits. Absent: pronater drift, facial droop, speech deficit - Skin Skin exam: Present: dry, intact - VTE Documentation of Mechanical Device: Intermittent pneumatic compression device
[2017-03-03 11:00] VITALS: BP 122/74
[2017-03-03] MEDS: *HR* HYDROcodone/Acet 7.5/325 mg TABLET PO PRN (11:17)
== END 2017-03-03 13:21 | disposition home or self-care (01) ==
LOC: EMEROO 15:36 → 3ANU 15:36
PROVIDERS: ADMIT Internal Medicine; ATTEND Internal Medicine

== ENCOUNTER 2022-02-04 14:18 | Observation (INO) ==
[2022-02-04 15:50] LABS: Basophils % 0.1 %; Hematocrit 39.8 % (35.3-44.9); Hemoglobin 13.5 g/dL (11.5-15.4); Immature Granulocytes % 0.3 % (0-4); Lymphocytes # 0.4 K/mcL (0.6-4.6); Lymphocytes % 6.3 %; Mean Corpuscular HGB Conc 33.9 g/dL (31.6-35.5); Mean Corpuscular Volume 91.5 fL (83.0-100.0); Mean Platelet Volume 8.8 fL (9.4-12.4); Monocytes # 0.3 K/mcL (0.0-1.3); Monocytes % 4.2 %; Platelet Count 302 K/mcL (140-400); Red Blood Count 4.35 M/mcL (3.82-4.97); Red Cell Distribution Width 12.8 % (11.5-14.5); Segmented Neutrophils % 89.1 %; White Blood Count 6.7 K/mcL (4.3-11.1)
[2022-02-04 16:11] LABS: BUN/Creatinine Ratio 21 (6-26); Blood Urea Nitrogen 14 mg/dL (6-20); Calcium 9.5 mg/dL (8.6-10.3); Carbon Dioxide 24 mEq/L (23-29); Chloride 107 mEq/L (98-107); Glucose 144 mg/dL (70-105); Osmolality,Calculated 291 (280-300); Potassium 3.4 mEq/L (3.5-5.1); Sodium 139 mEq/L (136-145); eGFR For African Americans > 60 (> 60); eGFR For Non-African Americans > 60 (> 60)
[2022-02-04 17:11] LABS: Bacteria,Urine Few per hpf (None-Few); Bilirubin,Urine Negative (Negative); Blood,Urine Moderate (Negative); Clarity,Urine Turbid (Clear); Color,Urine Light-Yellow (Yellow); Glucose,Urine (UA) Normal (Normal); Ketones,Urine 60 mg/dL (Negative); Leukocyte Esterase,Urine Negative (Negative); Mucus,Urine Few per lpf (None-Few); Nitrite,Urine Negative (Negative); PH,Urine 5.5 pH Units (5.0-8.0); Protein,Urine 30 mg/dL (Neg-Trace); RBC,Urine 0-3 per hpf (0-3); Specific Gravity,Urine 1.022 (1.010-1.025); Squamous Epithelial Cell,Urine Few per hpf (None-Few); Urobilinogen,Urine Normal (Normal); WBC,Urine 0-3 per hpf (0-3)
[2022-02-04] MEDS ORDERED: Ketorolac 30 MG/ML VIAL IVP ONE (17:55)
[2022-02-04] MEDS ORDERED: Melatonin 3 MG TABLET PO PRN (19:17)
[2022-02-04] MEDS ORDERED: Naloxone 0.4 MG/ML INJ IVP PRN (19:17)
[2022-02-04] MEDS: *HR* Heparin 5,000 UNIT/ML VIAL SQ SCH (22:23)
[2022-02-04] MEDS ORDERED: *HR* LORazepam 2 MG/ML VIAL IVP PRN (22:48)
[2022-02-05 03:17] LABS: Amphetamine Screen,Urine Negative ng/mL (Cutoff=1000); Barbiturate Screen,Urine Negative ng/mL (Cutoff=200); Benzodiazepines Screen,Urine Negative ng/mL (Cutoff=200); Cannabinoid Screen,Urine Negative ng/mL (Cutoff = 50); Cocaine Screen,Urine Negative ng/mL (Cutoff= 300); Opiate Screen,Urine Negative ng/mL (Cutoff=300); Phencyclidine Screen,Urine Negative ng/mL (Cutoff=25)
[2022-02-05] MEDS: *HR* Heparin 5,000 UNIT/ML VIAL SQ SCH (05:01)
[2022-02-05 05:57] LABS: Hematocrit 34.9 % (35.3-44.9); Hemoglobin 11.6 g/dL (11.5-15.4); Mean Corpuscular HGB Conc 33.2 g/dL (31.6-35.5); Mean Corpuscular Volume 93.3 fL (83.0-100.0); Mean Platelet Volume 8.9 fL (9.4-12.4); Platelet Count 274 K/mcL (140-400); Red Blood Count 3.74 M/mcL (3.82-4.97); Red Cell Distribution Width 12.9 % (11.5-14.5); White Blood Count 5.4 K/mcL (4.3-11.1)
[2022-02-05 06:22] LABS: Alanine Aminotransferase 26 Units/L (7-52); Albumin 3.8 g/dL (3.5-5.7); Albumin/Globulin Ratio 1.6 (1.1-2.2); Alkaline Phosphatase 47 Units/L (34-104); Aspartate Amino Transferase 17 Units/L (13-39); BUN/Creatinine Ratio 19 (6-26); Bilirubin,Total 0.3 mg/dL (0.3-1.0); Blood Urea Nitrogen 14 mg/dL (6-20); Calcium 9.1 mg/dL (8.6-10.3); Carbon Dioxide 26 mEq/L (23-29); Chloride 109 mEq/L (98-107); Globulin 2.4 g/dL (2.4-3.5); Glucose 115 mg/dL (70-105); Osmolality,Calculated 293 (280-300); Potassium 3.3 mEq/L (3.5-5.1); Sodium 141 mEq/L (136-145); Total Protein 6.2 g/dL (6.4-8.9); eGFR For African Americans > 60 (> 60); eGFR For Non-African Americans > 60 (> 60)
[2022-02-05 06:41] VITALS: O2SAT 97
[2022-02-05 11:09] VITALS: BP 117/68; PULSE 86; TEMP 97.9
== END 2022-02-05 13:01 | disposition home or self-care (01) ==
LOC: EMEROOARM 14:18 → 3BNU 14:18 → SUATTDRO 19:37 → 3BNU 21:07
PROVIDERS: ADMIT Family Medicine; ATTEND Registered Nurse